=== PATIENT | female | born 1965 | race Caucasian/White ===

== ENCOUNTER 2020-09-19 10:21 | Outpatient (CLI) | payer OTHER | END 2020-09-19 10:22 | disposition home or self-care (01) | LOC: EEVIPCON 10:21 → NM 10:21 | PROVIDERS: ATTEND Orthopaedic Surgery | DX: T84.032D Mechanical loosening of internal right knee prosthetic joint, subsequent encounter (principal); M19.072 Primary osteoarthritis, left ankle and foot; M47.812 Spondylosis without myelopathy or radiculopathy, cervical region; M25.461 Effusion, right knee; M17.12 Unilateral primary osteoarthritis, left knee; R94.8 Abnormal results of function studies of other organs and systems; Z96.651 Presence of right artificial knee joint | CPT/HCPCS: 72040; 78315; A9503 ==